=== PATIENT | female | born 1940 | race Caucasian/White ===

== ENCOUNTER → 2017-01-24 | Outpatient (CLI) | payer MEDICARE | END | disposition home or self-care (01) | LOC: RAD.S 13:42 | DX: R60.0 Localized edema (principal) ==

== ENCOUNTER → 2017-01-25 | Outpatient (CLI) | payer MEDICARE | END | disposition home or self-care (01) | LOC: RAD.S 13:39 | DX: M79.89 Other specified soft tissue disorders (principal); I82.813 Embolism and thrombosis of superficial veins of lower extremities, bilateral ==

== ENCOUNTER 2017-02-14 06:21 | Day surgery (SDC) | payer MEDICARE, SELFPAY ==
[~2017-02-14] VITALS: Ht 167.6 cm; Wt 112.0 kg
== END 2017-02-14 08:45 | disposition home or self-care (01) ==
LOC: RAD.S 06:21 → EDSTATUS 08:00 → RAD.S 08:45
PROC: 065Q3ZZ Destruction of Left Saphenous Vein, Percutaneous Approach (ICD-10-PCS; principal; 2017-02-14)
DX: I83.893 Varicose veins of bilateral lower extremities with other complications (principal)

== ENCOUNTER → 2017-02-17 | Outpatient (CLI) | payer MEDICARE, SELFPAY | END | disposition home or self-care (01) | LOC: RAD.S 12:30 | DX: M79.89 Other specified soft tissue disorders (principal); I82.812 Embolism and thrombosis of superficial veins of left lower extremity; Z98.890 Other specified postprocedural states ==

== ENCOUNTER 2017-02-25 06:30 | Day surgery (SDC) | payer MEDICARE, SELFPAY ==
[~2017-02-25] VITALS: Ht 167.6 cm; Wt 112.7 kg
== END 2017-02-25 10:00 | disposition home or self-care (01) ==
LOC: RAD.S 06:30 → EDSTATUS 02-28 09:00 → RAD.S 02-28 09:00
PROC: 065P3ZZ Destruction of Right Saphenous Vein, Percutaneous Approach (ICD-10-PCS; principal; 2017-02-25)
DX: I87.2 Venous insufficiency (chronic) (peripheral) (principal); I83.91 Asymptomatic varicose veins of right lower extremity; Z79.82 Long term (current) use of aspirin; Z79.4 Long term (current) use of insulin; Z79.899 Other long term (current) drug therapy

== ENCOUNTER → 2017-02-28 | Outpatient (CLI) | payer MEDICARE, SELFPAY | END | disposition home or self-care (01) | LOC: RAD.S 13:34 | DX: I87.2 Venous insufficiency (chronic) (peripheral) (principal) ==

== ENCOUNTER → 2017-03-18 | Outpatient (CLI) | payer MEDICARE, SELFPAY | END | disposition home or self-care (01) | LOC: RAD.S 13:44 | DX: I87.2 Venous insufficiency (chronic) (peripheral) (principal); Z98.890 Other specified postprocedural states ==